=== PATIENT | female | born 1940 | race Caucasian/White ===

== ENCOUNTER 2017-11-12 13:21 | Inpatient (IN) | payer MEDICARE, OTHER ==
[~2017-11-12] VITALS: Ht 160 cm; Wt 48.5 kg
[2017-11-12] MEDS ORDERED: ASPirin 81 mg TAB PO ONE ×2 (13:30→16:45)
[2017-11-12] MEDS ORDERED: SODIUM CHLORIDE 0.9% 1,000 ML IV ONE ×2 (13:30)
[2017-11-12] MEDS ORDERED: cefTRIAXone 1GM/10ml IVPUSH 10 ML IV ONE (13:30)
[2017-11-12 14:15] LABS: Lactic Acid w/Reflex 5.6 mmol/L (0.4-2.0)
[2017-11-12 14:20] LABS: Alanine Aminotransferase 30 U/L (13-56); Albumin 1.8 g/dL (3.4-5.0); Alkaline Phosphatase 89 U/L (45-117); Anion Gap 14 (5-15); Aspartate Aminotransferase 46 U/L (15-37); BUN/Creatinine Ratio 31.9; Bilirubin, Total 0.5 mg/dL (0.2-1.0); Blood Alcohol < 3.0 mg/dL (0-5); Blood Urea Nitrogen 37 mg/dL (7-18); Carbon Dioxide 23 mmol/L (21-32); Chloride 103 mmol/L (98-107); GFR African American 58 mL/min; GFR Non-African American 48 mL/min; Glucose 196 mg/dL (74-106); INR 1.04 (0.9-1.15); Partial Thromboplastin Time 37.1 sec (22.64-33.71); Potassium 3.1 mmol/L (3.5-5.1); Prothrombin Time 11.3 sec (9.37-12.3); Sodium 140 mmol/L (136-145); Total Protein 6.2 g/dL (6.4-8.2)
[2017-11-12 14:22] LABS: Hematocrit 40.2 % (36.0-46.0); Hemoglobin 13.4 g/dL (12.2-16.2); Mean Corpuscular Hemoglobin 33.5 pg (28.0-32.0); Mean Corpuscular Hgb Conc. 33.4 g/dL (32.0-36.0); Mean Corpuscular Volume 100.4 fL (80.0-100.0); Platelet Count (auto) 327 10^3/uL (140-450); Red Cell Distribution Width 16.2 % (11.8-14.3); White Blood Cell 7.4 10^3/uL (4.4-10.8)
[2017-11-12 14:22] LABS: Urine Bacteria MANY /hpf (None Seen); Urine Blood TRACE /uL (Negative); Urine Mucus FEW (None Seen); Urine Specific Gravity 1.026 (1.001-1.035); Urine WBC 3 /hpf (0 - 5)
[2017-11-12 14:25] LABS: Basophils % (manual) 0 (0.0-2.0); Blast Cells 0; Eosinophils % (manual) 0 (0-7); Promyelocytes % 0; Reactive Lymphocytes 0
[2017-11-12 14:28] LABS: Alcohol, Urine < 3.0 mg/dL (0-5); Amphetamine Screen, Urine NEGATIVE (NEGATIVE); Barbiturate Scree,Urine NEGATIVE (NEGATIVE); Benzodiazephine Screen, Urine NEGATIVE (NEGATIVE); Cannabinoid Screen, Urine NEGATIVE (NEGATIVE); Cocaine Screen, Urine NEGATIVE (NEGATIVE); Opiate Scree,Urine POSITIVE (NEGATIVE); Phencyclidine Screen, Urine NEGATIVE (NEGATIVE)
[2017-11-12 14:59] LABS: Band Neutrophils % (manual) 15; Lymphocytes % (manual) 4 (10.0-50.0); Metamyelocytes % 7; Monocytes % (manual) 1 (0-12); Myelocytes % 3
[2017-11-12] MEDS ORDERED: SODIUM CHLORIDE 0.9% 1,000 ML IV SCH (15:43)
[2017-11-12] MEDS ORDERED: NITROGLYCERIN 0.4 MG SL TAB SL PRN (15:45)
[2017-11-12] MEDS ORDERED: PROMETHAZINE HCL 25 MG/ML 1ML IV PRN (15:45)
[2017-11-12] MEDS ORDERED: MORPHINE SULFATE 8mg/ml INJ SDV IV PRN (15:45)
[2017-11-12] MEDS ORDERED: LORazepam 0.5 MG TAB PO PRN (15:45)
[2017-11-12] MEDS ORDERED: TEMAZEPAM 15 MG CAP PO PRN (15:45)
[2017-11-12] MEDS ORDERED: ALBUTEROL SULF 2.5 MG/0.5ML(0.5%) NEB SOLN NEB PRN (15:45)
[2017-11-12] MEDS ORDERED: ACETAMINOPHEN 500 MG TAB PO PRN (15:45)
[2017-11-12] MEDS ORDERED: LACTULOSE 20Gm/30ML SOLN PO PRN (15:45)
[2017-11-12] MEDS ORDERED: LORazepam 2MG/ML-1ML VIAL IV ONE (16:15)
[2017-11-12] MEDS ORDERED: POTASSIUM CHL 10% (20 MEQ/15ML) 15ml ORAL SOLN PO ONE (16:45)
[2017-11-12] MEDS: InsuLIN REG 1unit/0.01ml Soln (100units/ml) SC SCH ×2 (17:00→22:00)
[2017-11-12 17:13] LABS: Folate (Folic Acid) 18.2 ng/mL (5.38-24)
[2017-11-12] MEDS: ACCU-CHEK COMFORT CURVE STRIP VI SCH ×2 (17:15→22:21)
[2017-11-12] MEDS: DEXTROSE (50%) 50ML SYRG IV PRN ×2 (17:17→22:21)
[2017-11-12] MEDS: SOD CHL 0.9%/ KCL 20MEQ 1,000 ML IV SCH (17:23)
[2017-11-12] MEDS: FAMOTIDINE (10MG/ML) 2ML VL IV SCH (17:28)
[2017-11-12 19:46] VITALS: BP 135/66
[2017-11-12] MEDS ORDERED: ATORVASTATIN 20 MG TAB PO SCH (22:00)
[2017-11-13] MEDS: SOD CHL 0.9%/ KCL 20MEQ 1,000 ML IV SCH ×3 (02:46→22:11)
[2017-11-13] MEDS: FAMOTIDINE (10MG/ML) 2ML VL IV SCH ×2 (03:45→15:45)
[2017-11-13] MEDS ORDERED: ACETAMINOPHEN 650 MG RECT SUPP PR ONE (05:15)
[2017-11-13] MEDS ORDERED: D5W/SOD CHLO 0.9% 1,000 ML IV SCH (06:00)
[2017-11-13] MEDS ORDERED: SOD CHL 0.9%/ KCL 20MEQ 1,000 ML IV SCH (06:15)
[2017-11-13] MEDS: InsuLIN REG 1unit/0.01ml Soln (100units/ml) SC SCH ×4 (06:48→22:00)
[2017-11-13] MEDS: ACCU-CHEK COMFORT CURVE STRIP VI SCH ×4 (06:49→22:10)
[2017-11-13 07:01] LABS: Hemoglobin 11.2 g/dL (12.2-16.2); Mean Corpuscular Volume 100.1 fL (80.0-100.0); Platelet Count (auto) 270 10^3/uL (140-450); White Blood Cell 16.4 10^3/uL (4.4-10.8)
[2017-11-13 07:04] LABS: Basophils % (manual) 0 (0.0-2.0); Blast Cells 0; Eosinophils % (manual) 0 (0-7); Myelocytes % 0; Promyelocytes % 0; Reactive Lymphocytes 0
[2017-11-13 07:26] LABS: Albumin 1.4 g/dL (3.4-5.0); BUN/Creatinine Ratio 32.6; Bilirubin, Total 0.4 mg/dL (0.2-1.0); Calcium 8.2 mg/dL (8.5-10.1)
[2017-11-13 07:41] LABS: Potassium 2.9 mmol/L (3.5-5.1)
[2017-11-13 08:00] LABS: Band Neutrophils % (manual) 11; Lymphocytes % (manual) 3 (10.0-50.0); Metamyelocytes % 2; Monocytes % (manual) 2 (0-12)
[2017-11-13] MEDS ORDERED: POTASSIUM CHLORIDE 40 MEQ, LIDOCAINE 1% (LOCAL ANESTH.) 4 ML in SODIUM CHL 0.9% 100 ML IV ONE (08:00)
[2017-11-13] MEDS: POTASSIUM CHL 20MEQ/100ML 100 ML IV SCH ×2 (08:08→10:12)
[2017-11-13] MEDS: ASPirin 81 mg TAB PO SCH (10:00)
[2017-11-13] MEDS: cefTRIAXone 1GM/10ml IVPUSH 10 ML IV SCH (10:25)
[2017-11-13] MEDS: AZITHROMYCIN 500MG/ 250ML 250 ML IV SCH (10:25)
[2017-11-13] MEDS: ENOXAPARIN SOD 40 MG/0.4 ML SYRINGE SC SCH (10:25)
[2017-11-13] MEDS: MORPHINE SULFATE 8mg/ml INJ SDV IV PRN ×2 (11:14→15:17)
[2017-11-13] MEDS ORDERED: VANCOMYCIN PER PHARMACY 0 MG IV SCH (11:45)
[2017-11-13] MEDS ORDERED: VANCOMYCIN 1GM/250ML 250 ML IV ONE (12:00)
[2017-11-13 16:25] LABS: Lactic Acid w/Reflex 2.6 mmol/L (0.4-2.0)
[2017-11-13] MEDS ORDERED: BACL10TA PO (17:12)
[2017-11-13] MEDS ORDERED: HYDR-4683 PO (17:12)
[2017-11-13] MEDS ORDERED: CELE100C82 PO (17:12)
[2017-11-13] MEDS ORDERED: GABA300C10 PO (17:15)
[2017-11-13] MEDS ORDERED: RALO60TA13 PO (17:15)
[2017-11-13] MEDS ORDERED: DYA375C PO (17:15)
[2017-11-13] MEDS: HYDROcodone-ACET 5/325MG TAB PO PRN (18:18)
[2017-11-13 20:55] VITALS: BP 155/95
[2017-11-13 22:47] VITALS: BP 155/95
[2017-11-14] VITALS (7 sets, daily range): BP systolic 147–172; BP diastolic 80–95
[2017-11-14] MEDS: MORPHINE SULFATE 8mg/ml INJ SDV IV PRN ×3 (01:42→15:56)
[2017-11-14] MEDS ORDERED: LORazepam 2MG/ML-1ML VIAL ONE (02:27)
[2017-11-14] MEDS: FAMOTIDINE (10MG/ML) 2ML VL IV SCH ×2 (03:45→15:45)
[2017-11-14] MEDS: DEXTROSE (50%) 50ML SYRG IV PRN (05:17)
[2017-11-14] MEDS: InsuLIN REG 1unit/0.01ml Soln (100units/ml) SC SCH ×2 (05:18→11:30)
[2017-11-14] MEDS: ACCU-CHEK COMFORT CURVE STRIP VI SCH ×2 (05:18→11:53)
[2017-11-14 05:27] LABS: Hematocrit 33.8 % (36.0-46.0); Hemoglobin 11.1 g/dL (12.2-16.2); Mean Corpuscular Hemoglobin 32.6 pg (28.0-32.0); Mean Corpuscular Hgb Conc. 32.7 g/dL (32.0-36.0); Mean Corpuscular Volume 99.8 fL (80.0-100.0); Platelet Count (auto) 273 10^3/uL (140-450); Red Blood Cells 3.39 10^6/uL (4.0-5.20); Red Cell Distribution Width 16.3 % (11.8-14.3); White Blood Cell 18.6 10^3/uL (4.4-10.8)
[2017-11-14 05:59] LABS: Basophils % (manual) 0 (0.0-2.0); Blast Cells 0; Eosinophils % (manual) 0 (0-7); Metamyelocytes % 0; Myelocytes % 0; Promyelocytes % 0; Reactive Lymphocytes 0
[2017-11-14] MEDS ORDERED: FUROSEMIDE 40 MG/4 ML VIAL IV ONE (06:45)
[2017-11-14 07:05] LABS: BUN/Creatinine Ratio 55.9; Calcium 8.5 mg/dL (8.5-10.1); Magnesium 2.2 mg/dL (1.6-2.6)
[2017-11-14] MEDS: cefTRIAXone 1GM/10ml IVPUSH 10 ML IV SCH (08:47)
[2017-11-14] MEDS ORDERED: SOD CHL 0.9%/ KCL 20MEQ 1,000 ML IV SCH (09:45)
[2017-11-14] MEDS ORDERED: TRIAMTERENE/HCTZ 37.5/25 MG CAP PO SCH (10:00)
[2017-11-14] MEDS: ASPirin 81 mg TAB PO SCH (10:44)
[2017-11-14] MEDS: AZITHROMYCIN 500MG/ 250ML 250 ML IV SCH (10:45)
[2017-11-14] MEDS: ENOXAPARIN SOD 40 MG/0.4 ML SYRINGE SC SCH (10:45)
[2017-11-14] MEDS ORDERED: SODIUM CHLORIDE 0.9% 1,000 ML IV SCH (11:15)
[2017-11-14 11:16] LABS: Band Neutrophils % (manual) 1; Lymphocytes % (manual) 5 (10.0-50.0); Monocytes % (manual) 3 (0-12)
[2017-11-14] MEDS: HYDROcodone-ACET 5/325MG TAB PO PRN ×2 (11:53→18:29)
[2017-11-14] MEDS ORDERED: VANCOMYCIN 1GM/250ML 250 ML IV SCH (12:00)
[2017-11-14] MEDS ORDERED: VANCOMYCIN 750 MG in D5W 5% 250 ML IV SCH (12:00)
[2017-11-14] MEDS ORDERED: LORazepam 0.5 MG TAB PO PRN (12:30)
[2017-11-14] MEDS ORDERED: BACLOFEN 10 MG TAB PO PRN (12:30)
[2017-11-14] MEDS ORDERED: D5W/SOD CHL 0.45% 1,000 ML IV SCH (12:30)
[2017-11-14] MEDS ORDERED: GABAPENTIN 300 MG CAP PO SCH (14:00)
[2017-11-14] MEDS ORDERED: LABETALOL HCL 5 MG/ML ML 20ML VIAL IV PRN (18:30)
[2017-11-14] MEDS ORDERED: LORazepam 2MG/ML-1ML VIAL IV SCH (22:00)
== END 2017-11-14 21:10 | disposition short-term general hospital (02) | DRG 871 ==
LOC: ER 13:21 → EDBD 13:21 → TELE 13:22 → DOU IN ICU 11-13 20:57 → TELE-CENTR 11-14 13:37
PROVIDERS: ADMIT Internal Medicine; ATTEND Internal Medicine
DX: A41.89 Other specified sepsis (principal); G93.41 Metabolic encephalopathy; J96.01 Acute respiratory failure with hypoxia; E43 Unspecified severe protein-calorie malnutrition; N17.0 Acute kidney failure with tubular necrosis; R65.21 Severe sepsis with septic shock; J18.9 Pneumonia, unspecified organism; N39.0 Urinary tract infection, site not specified; I11.9 Hypertensive heart disease without heart failure; E87.6 Hypokalemia; F17.200 Nicotine dependence, unspecified, uncomplicated; G89.29 Other chronic pain; B96.20 Unspecified Escherichia coli [E. coli] as the cause of diseases classified elsewhere; M19.90 Unspecified osteoarthritis, unspecified site; F41.9 Anxiety disorder, unspecified; M54.5 Low back pain; Z88.0 Allergy status to penicillin; Z88.2 Allergy status to sulfonamides
CPT/HCPCS: 31720; 36415; 36600; 51702; 70450; 71045; 80048; 80053; 80061; 80307; 80320; 81001; 82550; 82607; 82746; 82805; 82962; 83036; 83605; 83735; 83880; 84132; 84443; 84484; 85007; 85027; 85610; 85652; 85730; 87040; 87077; 87081; 87086; 87088; 87186; 87804; 93005; 93306; 93886; 94640; 95819; 96361; 96374; 96375; 99291; J2001; J2270; J3480; J7060

== ENCOUNTER 2017-11-20 17:54 | Emergency (ER) | payer OTHER ==
[~2017-11-20] VITALS: Ht 160 cm; Wt 47.6 kg
[~2017-11-20 17:54] MED LIST: BACL10TA PO; CELE100C82 PO; DYA375C PO; GABA300C10 PO; HYDR-4683 PO; RALO60TA13 PO
[2017-11-20 19:33] LABS: Alanine Aminotransferase 19 U/L (13-56); Albumin 1.8 g/dL (3.4-5.0); Alkaline Phosphatase 114 U/L (45-117); Anion Gap 13 (5-15); Aspartate Aminotransferase 18 U/L (15-37); Basophils # (auto) 0 uL; Bilirubin, Total 0.3 mg/dL (0.2-1.0); Blood Urea Nitrogen 19 mg/dL (7-18); Calcium 8.4 mg/dL (8.5-10.1); Carbon Dioxide 22 mmol/L (21-32); Chloride 109 mmol/L (98-107); Eosinophils # (auto) 0 uL; GFR African American 154 mL/min; GFR Non-African American 127 mL/min; Glucose 74 mg/dL (74-106); Hemoglobin 10.3 g/dL (12.2-16.2); Lymphocytes % (auto) 5.8 % (10.0-50.0); Potassium 3.8 mmol/L (3.5-5.1); Sodium 144 mmol/L (136-145); Total Protein 6.2 g/dL (6.4-8.2)
[2017-11-20 19:40] LABS: Basophils % (auto) 0.2 % (0.0-2.0); Lymphocytes # (auto) 1.2 uL; Monocytes # (auto) 0.8 uL; Red Blood Cells 3.17 10^6/uL (4.0-5.20)
[2017-11-20 19:41] LABS: Hematocrit 31.7 % (36.0-46.0); Mean Corpuscular Hemoglobin 32.5 pg (28.0-32.0); Mean Corpuscular Hgb Conc. 32.5 g/dL (32.0-36.0); Mean Corpuscular Volume 99.8 fL (80.0-100.0); Platelet Count (auto) 731 10^3/uL (140-450); Red Cell Distribution Width 15.7 % (11.8-14.3)
[2017-11-20] MEDS ORDERED: SODIUM CHLORIDE 0.9% 500 ML IV ONE ×2 (19:45→20:30)
[2017-11-20] MEDS ORDERED: LEVOFLOXACIN 500MG 100 ML IV ONE (20:30)
[2017-11-20 22:10] LABS: Urine Bacteria NONE SEEN /hpf (None Seen); Urine Blood Negative /uL (Negative); Urine Budding Yeast OCCASIONAL /hpf (None Seen); Urine Specific Gravity 1.025 (1.001-1.035); Urine WBC 5 /hpf (0 - 5)
[2017-11-20 23:09] VITALS: BP 155/81
[2017-11-20] MEDS ORDERED: MORPHINE SULFATE INJECTION 1 ML ONE (23:15)
[2017-11-20] MEDS ORDERED: MORPHINE SULFATE 4 MG/ML SYR/VIAL IV ONE (23:15)
== END 2017-11-20 23:20 | disposition short-term general hospital (02) ==
LOC: ER 17:54 → EDBD 17:54 → ER 23:20
DX: J18.9 Pneumonia, unspecified organism (principal); D72.829 Elevated white blood cell count, unspecified; I11.9 Hypertensive heart disease without heart failure; F41.9 Anxiety disorder, unspecified; R42 Dizziness and giddiness; Z88.0 Allergy status to penicillin; Z88.2 Allergy status to sulfonamides
CPT/HCPCS: 36415; 70450; 71045; 80053; 80320; 81001; 83605; 83880; 84484; 85025; 93005; 94761; 96361; 96365; 96375; 99285; J1956; J2270; J7030